=== PATIENT | male | born 1985 | race Caucasian/White ===

== ENCOUNTER 2017-09-11 13:22 | Emergency (ER) | payer SELFPAY ==
[~2017-09-11] VITALS: Wt 90.9 kg
[~2017-09-11 13:22] MED LIST: AMOXICILLIN875 MG PO; LORTAB 5/500 501 TAB PO; NO HOME MEDICATIONS; NORCO 325 MG-51 TAB PO; PEN-VK500 MG PO
[2017-09-11 14:44] VITALS: BP 130/74
== END 2017-09-11 14:38 | disposition home or self-care (01) ==
LOC: ED 13:22
DX: H16.001 Unspecified corneal ulcer, right eye (principal); H00.012 Hordeolum externum right lower eyelid

== ENCOUNTER 2017-12-16 08:17 | Emergency (ER) | payer SELFPAY ==
[~2017-12-16] VITALS: Ht 177.8 cm; Wt 80.4 kg
[2017-12-16] MEDS ORDERED: ADVIL 200MG TA200 MG PO (08:32)
[2017-12-16 09:03] LABS: EOS # 0.2 (0.04-0.40); EOS % 3.2 % (0.0-4.0); HEMATOCRIT 40.9 % (42.0-52.0); HEMOGLOBIN 14.3 g/dL (13.5-18.0); LYMPH# 2.6 (1.50-4.00); MEAN CELL VOLUME 85 fl (78-100); MEAN CORPUSCULAR HEMOGLOBIN 30 pg (27-31); MEAN CORPUSCULAR HGB CONC 35 g/dL (33-37); MEAN PLATELET VOLUME 9.7 fl (7.4-10.4); MONO # 0.6 (0.20-0.80); NEU # 3.7 (1.40-6.50); PLATELET COUNT 191 K/mm3 (130-400); RED BLOOD COUNT 4.79 M/mm3 (4.20-5.60); WHITE BLOOD COUNT 7.2 K/mm3 (4.8-10.8)
[2017-12-16 09:11] LABS: ALBUMIN 3.8 g/dL (3.5-5.0); ALT/SGPT 44 U/L (21-72); AST-SGOT 34 U/L (17-59); BUN/CREATININE RATIO 17.7 (6.0-26.0); CALCIUM 8.7 mg/dL (8.4-10.2); CARBON DIOXIDE 26 mmol/L (22-30); POTASSIUM 4.1 mmol/L (3.6-5.0); SODIUM 140 mmol/L (137-145); TOTAL BILIRUBIN 0.5 mg/dL (0.2-1.3); TOTAL PROTEIN 6.8 g/dL (6.3-8.2)
[2017-12-16 09:15] LABS: ACETAMINOPHEN < 4 ug/mL (10-30); ALCOHOL IN-HOUSE < 10 mg/dL
[2017-12-16 09:20] LABS: GLUCOSE 110 mg/dL (75-110)
[2017-12-16 09:21] VITALS: BP 154/97
== END 2017-12-16 09:30 | disposition short-term general hospital (02) ==
LOC: ED 08:17
PROVIDERS: Nurse Practitioner
DX: T65.91XA Toxic effect of unspecified substance, accidental (unintentional), initial encounter (principal); R11.10 Vomiting, unspecified; F17.200 Nicotine dependence, unspecified, uncomplicated

== ENCOUNTER → 2019-09-14 | Outpatient (CLI) | payer SELFPAY ==
[~2019-09-14] MED LIST changes: +ADVIL 200MG TA200 MG PO
== END ==
LOC: LAB 16:49
DX: Z20.2 Contact with and (suspected) exposure to infections with a predominantly sexual mode of transmission (principal)

== ENCOUNTER 2020-07-07 20:43 | Emergency (ER) | payer SELFPAY ==
[~2020-07-07] VITALS: Ht 180.3 cm; Wt 90.9 kg
[2020-07-07 23:48] LABS: EOS # 0.2 (0.04-0.40); EOS % 2.2 % (0.0-4.0); HEMATOCRIT 42.6 % (42.0-52.0); LYMPH# 1.8 (1.50-4.00); MEAN CELL VOLUME 88 fl (78-100); MEAN CORPUSCULAR HEMOGLOBIN 31 pg (27-31); MEAN CORPUSCULAR HGB CONC 35 g/dL (33-37); MEAN PLATELET VOLUME 9.4 fl (7.4-10.4); MONO # 0.8 (0.20-0.80); NEU # 6.2 (1.40-6.50); PLATELET COUNT 194 K/mm3 (130-400); RED BLOOD COUNT 4.86 M/mm3 (4.20-5.60); RED CELL DISTRIBUTION WIDTH 11.4 % (11.5-14.5); WHITE BLOOD COUNT 9.1 K/mm3 (4.8-10.8)
[2020-07-08] LABS: ALBUMIN 4.3 g/dL (3.5-5.0)
[2020-07-08 00:01] LABS: POTASSIUM 4.5 mmol/L (3.5-5.1)
[2020-07-08 00:02] LABS: CALCIUM 9.3 mg/dL (8.3-10.5)
[2020-07-08 00:03] LABS: TOTAL PROTEIN 7.4 g/dL (6.4-8.3)
[2020-07-08 00:04] LABS: URINE APPEARANCE CLOUDY; URINE COLOR YELLOW
[2020-07-08 00:05] LABS: TOTAL BILIRUBIN 0.7 mg/dL (0.2-1.2)
[2020-07-08 00:05] LABS: URINE BILIRUBIN NEGATIVE (NEGATIVE); URINE BLOOD 50 ery/uL (NEGATIVE); URINE GLUCOSE NEGATIVE (NEGATIVE); URINE KETONE NEGATIVE (NEGATIVE); URINE LEUKOCYTE ESTERASE 2+ (NEGATIVE); URINE NITRATE NEGATIVE (NEGATIVE); URINE PROTEIN(semi-quant) 1+ mg/dL (NEGATIVE); URINE UROBILINOGEN NORMAL (NORMAL); URINE WBC >50 /hpf (0-3)
[2020-07-08] MEDS ORDERED: LEVOFLOXACIN500 M1 PO (00:37)
[2020-07-08 00:48] VITALS: BP 158/97
== END 2020-07-08 00:48 | disposition home or self-care (01) ==
LOC: ED 20:43
PROVIDERS: Nurse Practitioner
DX: N50.89 Other specified disorders of the male genital organs (principal); N39.0 Urinary tract infection, site not specified; F17.200 Nicotine dependence, unspecified, uncomplicated; Z79.1 Long term (current) use of non-steroidal anti-inflammatories (NSAID)
CPT/HCPCS: J0696

== ENCOUNTER → 2020-07-08 | Outpatient (CLI) | payer SELFPAY ==
[~2020-07-08] MED LIST changes: +LEVOFLOXACIN500 M1 PO
[2020-07-08 00:48] VITALS: BP 158/97
== END ==
LOC: RAD 15:22
DX: N45.1 Epididymitis (principal)

== ENCOUNTER → 2020-07-18 | Outpatient (CLI) | payer SELFPAY ==
[2020-07-08 00:48] VITALS: BP 158/97
== END ==
LOC: RAD 09:39
DX: J34.89 Other specified disorders of nose and nasal sinuses (principal)

== ENCOUNTER 2024-05-26 12:33 | Emergency (ER) | payer SELFPAY ==
[~2024-05-26] VITALS: Ht 177.8 cm; Wt 101.6 kg
[2024-05-26] MEDS ORDERED: hydrALAZINE 25 MG TAB PO ONE (13:30)
[2024-05-26] MEDS ORDERED: LISINOPRIL20 MG PO (14:08)
[2024-05-26 14:09] VITALS: BP 158/112
== END 2024-05-26 14:16 | disposition home or self-care (01) ==
LOC: ED 12:33
DX: S20.469A Insect bite (nonvenomous) of unspecified back wall of thorax, initial encounter (principal); F17.200 Nicotine dependence, unspecified, uncomplicated; W57.XXXA Bitten or stung by nonvenomous insect and other nonvenomous arthropods, initial encounter

== ENCOUNTER 2024-10-27 04:43 | Emergency (ER) | payer OTHER ==
[~2024-10-27] VITALS: Ht 180.3 cm; Wt 104.5 kg
[~2024-10-27 04:43] MED LIST changes: +LISINOPRIL20 MG PO
[2024-10-27] MEDS ORDERED: hydrOXYzine HCl 25 MG TAB PO ONE (05:00)
[2024-10-27] MEDS ORDERED: HYDROXYZINE HCL25 M1 PO (05:06)
[2024-10-27] MEDS ORDERED: ELIMITE60 G1 TP (05:06)
[2024-10-27 05:20] VITALS: BP 199/157
== END 2024-10-27 05:24 | disposition home or self-care (01) ==
LOC: ED 04:43
DX: R21 Rash and other nonspecific skin eruption (principal); F17.200 Nicotine dependence, unspecified, uncomplicated
CPT/HCPCS: Q0177